=== PATIENT | female | born 1945 | race Hispanic/Latino ===

== ENCOUNTER → 2017-09-18 | Outpatient (CLI) | payer OTHER ==
[~2017-09-18] MED LIST: AEC81 PO; AMOX-426 PO; APIX2.5T PO; CALC-1009 PO; CYAN1TAB44 PO; FERR325T22 PO; FLUO40CA49 PO; GLIP10TA9 PO; INS7030 SQ; INSU100V12 SQ; LOMO PO; METO25 PO; OMEG1CAP31 PO; RISE35TA PO; ROSU20TA PO; TRAM50TA2 PO; VENL-63 PO; VERA-6 PO; ZOLP10TA6 PO
== END | disposition home or self-care (01) ==
LOC: RAH 10:42
PROVIDERS: ATTEND Internal Medicine
DX: M25.551 Pain in right hip (principal)
CPT/HCPCS: 73502

== ENCOUNTER 2019-08-21 14:08 | Inpatient (IN) | payer OTHER ==
[~2019-08-21] VITALS: Ht 157.5 cm; Wt 70.4 kg
[~2019-08-21 14:08] MED LIST changes: -ROSU20TA PO; +ROSU20TA23 PO; -VERA-6 PO; +VERA120T13 PO
[2019-08-21 14:54] LABS: CREATININE 5.5 mg/dL (0.5-1.5); POTASSIUM 4.8 mmol/L (3.5-5.1)
[2019-08-21 14:55] LABS: BASOPHILS % (AUTO) 0.3 % (0.0-5.0); EOSINOPHILS % (AUTO) 0.1 % (0.0-8.0); HEMATOCRIT 31.8 % (36-48); LYMPHOCYTES % (AUTO) 4.9 % (21.0-51.0); MEAN CORPUSCULAR HEMOGLOBIN 30.8 pg (27.0-33.0); MEAN CORPUSCULAR HGB CONC 32.4 g/dL (32.0-36.0); MEAN CORPUSCULAR VOLUME 95.2 fL (79-99); MONOCYTES % (AUTO) 2.3 % (3.0-13.0); NEUTROPHILS % (AUTO) 72.1 % (40.0-77.0); NUCLEATED RED BLOOD CELLS 0.1 % (0.0-0.19); PLATELET COUNT (AUTO) 84 K/uL (130-400); RED BLOOD CELL COUNT(AUTO) 3.34 MIL/uL (4.00-5.50); RED CELL DISTRIBUTION WIDTH 14.2 % (11.0-15.5); WHITE BLOOD COUNT (AUTO) 13.4 K/uL (4.8-10.8)
[2019-08-21 14:57] LABS: INR 1.06 (0.85-1.15); PARTIAL THROMBOPLASTIN TIME 40.7 SEC (26.3-35.5); PROTHROMBIN TIME 11.4 SEC (9.6-11.6)
[2019-08-21 14:59] LABS: ALBUMIN 2.3 g/dL (3.5-5.0); BILIRUBIN,TOTAL 0.8 mg/dL (0.2-1.0); TOTAL PROTEIN, SERUM 6.8 g/dL (6.0-8.3)
[2019-08-21 15:00] LABS: CREATINE KINASE, TOTAL 169 U/L (21-232)
[2019-08-21 15:04] LABS: LIPASE < 50 U/L (114-286)
[2019-08-21 16:42] LABS: APPEARANCE,URINE Cloudy (CLEAR); BILIRUBIN,URINE Negative (NEGATIVE); COLOR,URINE Yellow (YELLOW); GLUCOSE, URINE (UA) Negative (NEGATIVE); KETONES,URINE Negative (NEGATIVE); LEUKOCYTE ESTERASE ,URINE Moderate (NEGATIVE); NITRATE,URINE Negative (NEGATIVE); OCCULT BLOOD,URINE Moderate (NEGATIVE); PROTEIN,URINE POS 2+ mg/dL (NEGATIVE)
[2019-08-21 16:51] LABS: BACTERIA,URINE Many /HPF (None Seen); MUCUS,URINE Moderate LPF (None Seen); SQUAMOUS EPITHELIAL CELL,UR Moderate /HPF (0-2)
[2019-08-21] MEDS ORDERED: MIDODRINE HCL 5 MG TABLET ONE (18:46)
[2019-08-21] MEDS: SODIUM CHLORIDE 0.9% 1000ML 1,000 ML IV SCH (18:48)
[2019-08-21] MEDS ORDERED: CEFTRIAXONE SODIUM 1 GM IV SCH (19:00)
[2019-08-21] MEDS ORDERED: LACTULOSE 20 GM/30 ML UDCUP PO PRN (19:00)
[2019-08-21] MEDS ORDERED: ONDANSETRON HCL 4 MG/2 ML VIAL IV PRN (19:00)
[2019-08-21] MEDS ORDERED: ACETAMINOPHEN 325 MG TAB PO PRN ×2 (19:00)
[2019-08-21] MEDS ORDERED: FAMOTIDINE 20MG TAB 20 MG TAB ONE (21:20)
[2019-08-21] MEDS ORDERED: CEFTRIAXONE SODIUM 1 GM ONE (21:20)
[2019-08-22 04:35] LABS: BASOPHILS % (AUTO) 0.4 % (0.0-5.0); EOSINOPHILS % (AUTO) 0.6 % (0.0-8.0); HEMATOCRIT 27.4 % (36-48); LYMPHOCYTES % (AUTO) 6.5 % (21.0-51.0); MEAN CORPUSCULAR HEMOGLOBIN 30.1 pg (27.0-33.0); MEAN CORPUSCULAR HGB CONC 32.5 g/dL (32.0-36.0); MEAN CORPUSCULAR VOLUME 92.6 fL (79-99); MONOCYTES % (AUTO) 3.4 % (3.0-13.0); NEUTROPHILS % (AUTO) 82.6 % (40.0-77.0); PLATELET COUNT (AUTO) 69 K/uL (130-400); RED BLOOD CELL COUNT(AUTO) 2.96 MIL/uL (4.00-5.50); RED CELL DISTRIBUTION WIDTH 14.3 % (11.0-15.5); WHITE BLOOD COUNT (AUTO) 11.9 K/uL (4.8-10.8)
[2019-08-22] MEDS: SODIUM CHLORIDE 0.9% 1000ML 1,000 ML IV SCH ×3 (04:48→21:31)
[2019-08-22 04:52] LABS: CREATININE 5.2 mg/dL (0.5-1.5); POTASSIUM 4.6 mmol/L (3.5-5.1)
[2019-08-22] MEDS: ZOSYN 3.375GM+NS 50ML 50 ML IV SCH ×2 (08:15→20:24)
[2019-08-22] MEDS ORDERED: FAMOTIDINE 20MG TAB 20 MG TAB ONE (08:36)
[2019-08-22] MEDS: FAMOTIDINE 20MG TAB 20 MG TAB PO SCH (09:00)
[2019-08-22] MEDS: SODIUM BICARBONATE 650 MG TAB PO SCH ×2 (09:15→20:25)
[2019-08-22] MEDS ORDERED: ACETAMINOPHEN 325 MG TAB ONE (09:54)
[2019-08-22] MEDS ORDERED: CEFTRIAXONE SODIUM 1 GM ONE (10:45)
[2019-08-22 14:45] VITALS: BP 126/70
[2019-08-22] MEDS ORDERED: MELA5TAB14 PO (16:16)
[2019-08-22] MEDS ORDERED: ATOR10 PO (16:16)
[2019-08-22] MEDS ORDERED: MIRT15TA6 PO (16:16)
[2019-08-22] MEDS ORDERED: INSU100C14 SQ (16:16)
[2019-08-22] MEDS ORDERED: LISI-617 PO (16:16)
[2019-08-22] MEDS ORDERED: ESOM40CA54 PO (16:16)
[2019-08-22] MEDS ORDERED: TRAM50TA4 PO (16:16)
[2019-08-22] MEDS ORDERED: PRAM0.129 PO (16:16)
[2019-08-22] MEDS ORDERED: ICOS1CAP PO (16:16)
[2019-08-22] MEDS ORDERED: METO25TA6 PO (16:16)
--- NOTE | 2019-08-22 18:56 | NUR ---
DR AGUERO IF PATIENT BECOMES FEBRILE AND/OR SEPTIC, PLEASE PAGE HIM, PATIENT'S PRIMARY UROLOGIST IS DR AGUERO.
[2019-08-22 19:07] VITALS: BP 114/55
--- NOTE | 2019-08-22 19:45 | NUR ---
PM Assessment Received pt awake with NS at 100cc/hr, routine assessment done, plan of care discuss, noted to be shivering, claimed feeling cold, reported temp 98.5, pt room temperature noted at 69, increased to 75, pt covered with blanket for comfort. Pt denies pain at this time.
[2019-08-22] MEDS: CEFTRIAXONE SODIUM 1 GM IV SCH (20:25)
[2019-08-22 23:00] VITALS: BP 123/63
[2019-08-22] MEDS ORDERED: METOPROLOL TARTRATE 1 MG/ML 5ML VIAL IV PRN (23:15)
[2019-08-22] MEDS ORDERED: METOPROLOL TARTRATE 1 MG/ML 5ML VIAL IV ONE (23:19)
[2019-08-22 23:25] VITALS: BP 151/90
--- NOTE | 2019-08-22 23:25 | NUR ---
Re: Reported HR 150's SONOSCOPE OPERATOR Remy page & called back & made aware current status, no fever/pain temp 98.8, BP 123/63, R 26, per tele HR 150's, pt denies pain, also made aware pt per home medication is on Metoprolol 25mg po BID. Received order to give Metoprolol 2.5mg IV as PRN for HR>110, hold for SBP <100. Pt temp rechecked orally 99.5.
[2019-08-22 23:45] VITALS: BP 113/56
--- NOTE | 2019-08-22 23:45 | NUR ---
Re: Sinus tachycardia Pt noted to remain tachycardic, temp re-check axillary as pt noted warm to touch, 102.4, medicated with Tylenol & application of cold compress, will continue to monitor.
[2019-08-23] VITALS (26 sets, daily range): BP systolic 77–157; BP diastolic 41–119
[2019-08-23 04:11] LABS: BASOPHILS % (AUTO) 0.1 % (0.0-5.0); EOSINOPHILS % (AUTO) 58.2 % (0.0-8.0); HEMATOCRIT 26.8 % (36-48); LYMPHOCYTES % (AUTO) 2.8 % (21.0-51.0); MEAN CORPUSCULAR HEMOGLOBIN 30.6 pg (27.0-33.0); MEAN CORPUSCULAR HGB CONC 32.5 g/dL (32.0-36.0); MEAN CORPUSCULAR VOLUME 94.4 fL (79-99); MONOCYTES % (AUTO) 2.8 % (3.0-13.0); NEUTROPHILS % (AUTO) 34.8 % (40.0-77.0); NUCLEATED RED BLOOD CELLS 0.2 % (0.0-0.19); PLATELET COUNT (AUTO) 58 K/uL (130-400); RED BLOOD CELL COUNT(AUTO) 2.84 MIL/uL (4.00-5.50); RED CELL DISTRIBUTION WIDTH 14.3 % (11.0-15.5); WHITE BLOOD COUNT (AUTO) 11.6 K/uL (4.8-10.8)
[2019-08-23 04:24] LABS: % IRON SATURATION 3.6 % (22-44)
[2019-08-23 04:43] LABS: CREATININE 5.4 mg/dL (0.5-1.5); MAGNESIUM 1.1 mg/dL (1.80-2.40); PHOSPHORUS 4.6 mg/dL (2.5-4.9); POTASSIUM 4.4 mmol/L (3.5-5.1); THYROID STIMULATING HORMONE 0.86 uIU/mL (0.36-3.74)
[2019-08-23] MEDS: INSULIN HUMULIN R 100 UNIT/ML 3ML SQ SCH ×4 (05:50→20:39)
--- NOTE | 2019-08-23 07:45 | NUR ---
ASSESSMENT ENCOUNTERED PT ASLEEP BUT AROUSEABLE, A&OX3, CALM COOPERATIVE AND DOES NOT APPEAR TO BE IN ANY DISTRESS NOR ANY NEURO DEFICITS PRESENT. PT DENIES SOB, NAUSEA BUT DOES C/O BILATERAL BACK DISCOMFORT. PT TO REMAIN NPO UNTIL SEEN BY DR AGUERO. CALL LIGHT WITHIN REACH.
[2019-08-23] MEDS ORDERED: MAGNESIUM 2GM PREMIX 50ML 50 ML IV ONE ×2 (07:52→18:30)
--- NOTE | 2019-08-23 08:14 | NUR ---
MAGNESIUM LEVEL 1.1 DR CARRILLO UPDATED WITH CREATININE 5.5, NO ORDERS RECEIVED. WILL SEE PATIENT.
[2019-08-23] MEDS: ZOSYN 3.375GM+NS 50ML 50 ML IV SCH ×2 (08:15→20:29)
--- NOTE | 2019-08-23 08:30 | NUR ---
DR AGUERO UPDATED ORDERS RECEIVED
[2019-08-23] MEDS: CEFTRIAXONE SODIUM 1 GM IV SCH ×2 (08:53→20:29)
[2019-08-23] MEDS: SODIUM BICARBONATE 650 MG TAB PO SCH ×3 (09:00→20:29)
[2019-08-23] MEDS: FAMOTIDINE 20MG TAB 20 MG TAB PO SCH (09:00)
[2019-08-23] MEDS ORDERED: IOHEXOL-350 50ML VIAL IV ONE (09:39)
[2019-08-23] MEDS ORDERED: DEXAMETHASONE SOD PHOSPHATE 10MG/ML 1ML VIAL ONE (10:16)
[2019-08-23] MEDS ORDERED: PROPOFOL 10 MG/ML 20ML VIAL IV ONE (10:16)
[2019-08-23] MEDS ORDERED: ONDANSETRON HCL 4 MG/2 ML VIAL ONE (10:16)
[2019-08-23] MEDS ORDERED: LIDOCAINE PF 2% 5ML ABBOJECT ONE (10:16)
[2019-08-23] MEDS ORDERED: GLYCOPYRROLATE 1 MG/5 ML SYRINGE ONE (10:16)
[2019-08-23] MEDS ORDERED: SUCCINYLCHOLINE 200MG/10ML SYR ONE (10:16)
[2019-08-23] MEDS ORDERED: NEOSTIGMINE 5MG/5ML SYR IV ONE (10:17)
[2019-08-23] MEDS ORDERED: FENTANYL CITRATE PF 50 MCG/1 ML 2ML VIAL ONE (10:17)
[2019-08-23] MEDS ORDERED: ROCURONIUM 10MG/1ML SYR 10 MG/ML ML ONE (10:17)
[2019-08-23] MEDS ORDERED: MIDAZOLAM HCL 1 MG/ML 2ML VIAL ONE (10:17)
[2019-08-23] MEDS: SODIUM CHLORIDE 0.9% 1000ML 1,000 ML IV SCH (10:48)
--- NOTE | 2019-08-23 11:38 | NUR ---
INITIAL SW spoke with daughter, Mary Luna, [phone]. Another emergency contact is patient's granddaughter, Lynne Rosenthal, [phone]. Patient has no home health but [facility] nurse visits once X 3 months. PHC is with [facility] X 28.5 hours a week. Daughter is provider during the week and granddaughter is provider during the weekend. DME: rollator, wheel chair, BPM, glucometer (uses insulin), BSC, shower chair. Patient does need help with ADL's as per daughter and does not drive. PCP is Dr. Núñez. Pharmacy is [facility] located in [place]. DCP is home. Addendum: 08/23/19 at 1141 by COLLIN GOLDEN SS Amended: Links added.
[2019-08-23] MEDS ORDERED: ESMOLOL HCL 10 MG/ML 10 ML VIAL ONE (12:11)
[2019-08-23] MEDS ORDERED: ALBUMIN (HUMAN) 5% 250 ML IV ONE (12:19)
--- NOTE | 2019-08-23 13:45 | NUR ---
POST PROCEDURE RECEIVED PT FROM RECOVERY, IN SEMI SINGLETON'S POSITION, A&OX3, CALM COOPERATIVE AND DOES NOT APPEAR TO BE IN ANY DISTRESS NOR ANY NEURO DEFICITS PRESENT. DOTY CATH IN PLACE, BLOOD AND PURULENT TINGED URINE IN DOTY BAG, PT RESTING COMFORTABLY, CALL LIGHT WITHIN REACH.
--- NOTE | 2019-08-23 19:40 | NUR ---
PM Assessment Received pt s/p Cystoscopy with right ureteral stent placement, with Pinedo catheter in place, NS at 150cc/hr, pt reminded that she has a string that hsa been tape to her lower abdomen not to pull it until he goes back to see Dr. Gomez on her appointment once d/c, verbalizes understanding. Routine assessment done, pt noted had an accident, (+) diarrhea, watery, MANAGER OF TRAINING Parvin requested to go ahead give the pt a complete bed bath. Pt currently denies discomfort, stated feel much better at this time.
[2019-08-24] MEDS: SODIUM CHLORIDE 0.9% 1000ML 1,000 ML IV SCH ×3 (00:56→21:21)
[2019-08-24 03:59] VITALS: BP 162/85
[2019-08-24 04:35] LABS: HEMATOCRIT 28.1 % (36-48); MEAN CORPUSCULAR HGB CONC 31.3 g/dL (32.0-36.0); MEAN CORPUSCULAR VOLUME 95.9 fL (79-99); NUCLEATED RED BLOOD CELLS 0.2 % (0.0-0.19); RED BLOOD CELL COUNT(AUTO) 2.93 MIL/uL (4.00-5.50); RED CELL DISTRIBUTION WIDTH 14.4 % (11.0-15.5); WHITE BLOOD COUNT (AUTO) 8.5 K/uL (4.8-10.8)
[2019-08-24 04:58] LABS: BILIRUBIN,TOTAL 0.4 mg/dL (0.2-1.0); CREATININE 5.2 mg/dL (0.5-1.5); MAGNESIUM 1.9 mg/dL (1.80-2.40); PHOSPHORUS 5.9 mg/dL (2.5-4.9); POTASSIUM 5.3 mmol/L (3.5-5.1); TOTAL PROTEIN, SERUM 6.4 g/dL (6.0-8.3)
[2019-08-24 05:01] LABS: % IRON SATURATION 7.9 % (22-44)
[2019-08-24] MEDS: INSULIN HUMULIN R 100 UNIT/ML 3ML SQ SCH ×4 (06:51→20:52)
[2019-08-24] MEDS: ZOSYN 3.375GM+NS 50ML 50 ML IV SCH (07:55)
[2019-08-24] MEDS: CEFTRIAXONE SODIUM 1 GM IV SCH ×2 (07:55→20:32)
[2019-08-24] MEDS: FAMOTIDINE 20MG TAB 20 MG TAB PO SCH (07:55)
[2019-08-24] MEDS: SODIUM BICARBONATE 650 MG TAB PO SCH ×3 (07:56→20:32)
[2019-08-24 08:00] VITALS: BP 149/99
[2019-08-24] MEDS: METOPROLOL TARTRATE 25 MG TAB PO SCH ×2 (09:00→20:32)
[2019-08-24 11:18] VITALS: BP 140/78
[2019-08-24] MEDS: MEROPENEM 1 GM VIAL IVP SCH (13:13)
[2019-08-24] MEDS ORDERED: CALCIUM CHLORIDE 100 MG/ML 10 ML SYG IVP SCH (15:45)
[2019-08-24 15:50] VITALS: BP 162/85
[2019-08-24 19:00] VITALS: BP 180/89
[2019-08-24 23:00] VITALS: BP 153/87
[2019-08-25 03:00] VITALS: BP 189/92
[2019-08-25] MEDS: INSULIN HUMULIN R 100 UNIT/ML 3ML SQ SCH ×4 (05:15→21:15)
[2019-08-25] MEDS: SODIUM CHLORIDE 0.9% 1000ML 1,000 ML IV SCH ×2 (05:15→12:42)
[2019-08-25 05:37] LABS: BASOPHILS % (AUTO) 0.1 % (0.0-5.0); HEMATOCRIT 27.9 % (36-48); LYMPHOCYTES % (AUTO) 9.2 % (21.0-51.0); MEAN CORPUSCULAR HEMOGLOBIN 30.8 pg (27.0-33.0); MEAN CORPUSCULAR HGB CONC 33.3 g/dL (32.0-36.0); MEAN CORPUSCULAR VOLUME 92.4 fL (79-99); MONOCYTES % (AUTO) 5.6 % (3.0-13.0); NEUTROPHILS % (AUTO) 83.7 % (40.0-77.0); NUCLEATED RED BLOOD CELLS 0.3 % (0.0-0.19); PLATELET COUNT (AUTO) 61 K/uL (130-400); RED BLOOD CELL COUNT(AUTO) 3.02 MIL/uL (4.00-5.50); RED CELL DISTRIBUTION WIDTH 14.3 % (11.0-15.5); WHITE BLOOD COUNT (AUTO) 9.4 K/uL (4.8-10.8)
[2019-08-25 06:09] LABS: ALBUMIN 2.1 g/dL (3.5-5.0); BILIRUBIN,TOTAL 0.3 mg/dL (0.2-1.0); CREATININE 4.5 mg/dL (0.5-1.5); MAGNESIUM 1.7 mg/dL (1.80-2.40); PHOSPHORUS 4.5 mg/dL (2.5-4.9); POTASSIUM 5.2 mmol/L (3.5-5.1); TOTAL PROTEIN, SERUM 6.7 g/dL (6.0-8.3)
[2019-08-25] MEDS: SODIUM BICARBONATE 650 MG TAB PO SCH ×3 (07:51→19:37)
[2019-08-25] MEDS: METOPROLOL TARTRATE 25 MG TAB PO SCH ×2 (07:58→19:37)
[2019-08-25] MEDS: FAMOTIDINE 20MG TAB 20 MG TAB PO SCH (07:58)
[2019-08-25] MEDS: CEFTRIAXONE SODIUM 1 GM IV SCH (07:58)
[2019-08-25 08:15] VITALS: BP 198/105
[2019-08-25] MEDS ORDERED: AMLODIPINE BESYLATE 5 MG TAB PO SCH (09:15)
[2019-08-25] MEDS: MEROPENEM 1 GM VIAL IVP SCH (10:52)
[2019-08-25 11:48] VITALS: BP 181/92
[2019-08-25 16:25] VITALS: BP 169/77
--- NOTE | 2019-08-25 17:45 | NUR ---
pt uncooperative pt agitated at this time, removed telemetry and o2 per nc. states wanting to go home, states staff "laughing" her . positive redirection and re-oriented pt. pt agitated and insists on going home. call placed to daughter; states will be in to speak to pt
--- NOTE | 2019-08-25 18:45 | NUR ---
daughter present at this time pt's daughter here, made aware pt continues to be agitated and wants to go home. Dr Stokes here to see pt and speak to daughter. pt continues to refuse telemetry, iv fluids, and o2 per nc
[2019-08-25] MEDS ORDERED: DiphenhydrAMINE HCL 50 MG/ML VIAL IM PRN (19:00)
[2019-08-25] MEDS ORDERED: COMPOUND IV MISC 1 EACH IVSOLN MISC PRN (19:00)
[2019-08-25] MEDS ORDERED: HALOPERIDOL LACTATE 5 MG/ML VIAL IM PRN (19:00)
[2019-08-25] MEDS ORDERED: LOPERAMIDE HCL 2 MG CAP PO PRN (19:30)
[2019-08-25 20:00] VITALS: BP 128/86
[2019-08-25] MEDS: IRON SUCROSE COMPLEX 100 MG in SODIUM CHLORIDE 0.9% 50 ML IV SCH (21:14)
[2019-08-25] MEDS ORDERED: TRAMADOL HCL 50 MG TABLET PO PRN (21:15)
[2019-08-26] VITALS (7 sets, daily range): BP systolic 137–179; BP diastolic 60–94
[2019-08-26] MEDS: SODIUM CHLORIDE 0.9% 1000ML 1,000 ML IV SCH (03:28)
[2019-08-26 05:36] LABS: BASOPHILS % (AUTO) 0.1 % (0.0-5.0); EOSINOPHILS % (AUTO) 0.4 % (0.0-8.0); HEMATOCRIT 27.4 % (36-48); LYMPHOCYTES % (AUTO) 10.1 % (21.0-51.0); MEAN CORPUSCULAR HEMOGLOBIN 30.4 pg (27.0-33.0); MEAN CORPUSCULAR HGB CONC 33.2 g/dL (32.0-36.0); MEAN CORPUSCULAR VOLUME 91.6 fL (79-99); MONOCYTES % (AUTO) 10.2 % (3.0-13.0); NEUTROPHILS % (AUTO) 76.8 % (40.0-77.0); NUCLEATED RED BLOOD CELLS 0.4 % (0.0-0.19); PLATELET COUNT (AUTO) 84 K/uL (130-400); RED BLOOD CELL COUNT(AUTO) 2.99 MIL/uL (4.00-5.50); RED CELL DISTRIBUTION WIDTH 14.1 % (11.0-15.5); WHITE BLOOD COUNT (AUTO) 10.3 K/uL (4.8-10.8)
[2019-08-26 05:57] LABS: ALBUMIN 2.1 g/dL (3.5-5.0); BILIRUBIN,TOTAL 0.3 mg/dL (0.2-1.0); CREATININE 3.7 mg/dL (0.5-1.5); MAGNESIUM 1.7 mg/dL (1.80-2.40); PHOSPHORUS 4.4 mg/dL (2.5-4.9); POTASSIUM 4.4 mmol/L (3.5-5.1); TOTAL PROTEIN, SERUM 6.1 g/dL (6.0-8.3)
[2019-08-26] MEDS: INSULIN HUMULIN R 100 UNIT/ML 3ML SQ SCH ×4 (06:10→21:02)
[2019-08-26 06:47] LABS: ERYTHROCYTE SEDIMENTATION RATE 70 MM/HR (0-30)
[2019-08-26] MEDS: **HM**(Icosapent Ethyl (Vascepa) 1 GM PO SCH ×2 (08:00→17:00)
[2019-08-26] MEDS: SODIUM BICARBONATE 650 MG TAB PO SCH ×3 (08:36→20:46)
[2019-08-26] MEDS: AMLODIPINE BESYLATE 5 MG TAB PO SCH (09:20)
[2019-08-26] MEDS: PANTOPRAZOLE SODIUM 40 MG TABLET.DR PO SCH (09:20)
[2019-08-26] MEDS: METOPROLOL TARTRATE 25 MG TAB PO SCH ×2 (09:20→20:46)
[2019-08-26] MEDS: LISINOPRIL 5 MG TABLET PO SCH (09:21)
[2019-08-26] MEDS: PRAMIPEXOLE DI-HCL 0.25 MG TABLET PO SCH ×2 (09:21→20:46)
[2019-08-26] MEDS: FAMOTIDINE 20MG TAB 20 MG TAB PO SCH (09:21)
[2019-08-26] MEDS: MEROPENEM 1 GM VIAL IVP SCH (13:03)
--- NOTE | 2019-08-26 14:00 | NUR ---
CM NOTE/[facility] NEW REFERALL FOR IV ANTIBIOTICS AND HOME HEALTH. MEET WITH PATIENT IN ROOM, [facility] TO CALL HER DAUGHTER REGARDING DC PLANNING. JULIEN SORIANO CALLED, [facility]REG[facility] FILLED FOR [facility] AND [facility] FOR IV ANTIBIOTICS. [facility] FAXED, PENDING RX FOR IV, WILL FOLLOW UP AND FAX ORDER WHEN AVAILABLE.
[2019-08-26 14:13] LABS: INR 1.03 (0.85-1.15); PROTHROMBIN TIME 11.1 SEC (9.6-11.6)
[2019-08-26] MEDS: MIRTAZAPINE 15 MG TABLET PO SCH (20:46)
[2019-08-26] MEDS: ATORVASTATIN CALCIUM 20 MG TABLET PO SCH (20:46)
[2019-08-26] MEDS: IRON SUCROSE COMPLEX 100 MG in SODIUM CHLORIDE 0.9% 50 ML IV SCH (20:46)
[2019-08-26] MEDS: MELATONIN 5 MG PO SCH (21:00)
--- NOTE | 2019-08-27 | NUR ---
PATENT A/OX3. COMPLIANT. DENIES PAIN. NO S/S OF DISTRESS AT THIS TIME. DOTY CATHETER IN PLACE DRAINING RED TINGED URINE WITH SEDIMENT. WILL CONTINUE TO MONITOR.
[2019-08-27 03:41] VITALS: BP 153/70
[2019-08-27 04:58] LABS: ALBUMIN 1.9 g/dL (3.5-5.0); BILIRUBIN,TOTAL 0.7 mg/dL (0.2-1.0); CREATININE 2.8 mg/dL (0.5-1.5); POTASSIUM 4.6 mmol/L (3.5-5.1); TOTAL PROTEIN, SERUM 5.7 g/dL (6.0-8.3)
[2019-08-27] MEDS: INSULIN HUMULIN R 100 UNIT/ML 3ML SQ SCH ×4 (06:30→20:40)
[2019-08-27] MEDS: PANTOPRAZOLE SODIUM 40 MG TABLET.DR PO SCH (06:37)
[2019-08-27 07:08] LABS: BASOPHILS % (AUTO) 0.2 % (0.0-5.0); EOSINOPHILS % (AUTO) 1.1 % (0.0-8.0); HEMATOCRIT 25.8 % (36-48); LYMPHOCYTES % (AUTO) 14.6 % (21.0-51.0); MEAN CORPUSCULAR HEMOGLOBIN 30.2 pg (27.0-33.0); MEAN CORPUSCULAR HGB CONC 32.9 g/dL (32.0-36.0); MEAN CORPUSCULAR VOLUME 91.8 fL (79-99); MONOCYTES % (AUTO) 8.8 % (3.0-13.0); NEUTROPHILS % (AUTO) 71.3 % (40.0-77.0); NUCLEATED RED BLOOD CELLS 0.5 % (0.0-0.19); PLATELET COUNT (AUTO) 96 K/uL (130-400); RED BLOOD CELL COUNT(AUTO) 2.81 MIL/uL (4.00-5.50); RED CELL DISTRIBUTION WIDTH 13.9 % (11.0-15.5); WHITE BLOOD COUNT (AUTO) 8.8 K/uL (4.8-10.8)
[2019-08-27] MEDS: **HM**(Icosapent Ethyl (Vascepa) 1 GM PO SCH ×2 (08:00→16:55)
[2019-08-27 08:34] VITALS: BP 123/69
[2019-08-27] MEDS: SODIUM BICARBONATE 650 MG TAB PO SCH ×3 (09:15→20:29)
[2019-08-27] MEDS: FAMOTIDINE 20MG TAB 20 MG TAB PO SCH (09:22)
[2019-08-27] MEDS: PRAMIPEXOLE DI-HCL 0.25 MG TABLET PO SCH ×2 (09:24→20:30)
[2019-08-27] MEDS: AMLODIPINE BESYLATE 5 MG TAB PO SCH (09:24)
[2019-08-27] MEDS: LISINOPRIL 5 MG TABLET PO SCH (09:25)
[2019-08-27] MEDS: METOPROLOL TARTRATE 25 MG TAB PO SCH ×2 (09:25→20:30)
[2019-08-27] MEDS: MEROPENEM 1 GM VIAL IVP SCH (09:26)
[2019-08-27 12:29] VITALS: BP 151/75
--- NOTE | 2019-08-27 14:01 | NUR ---
CM NOTE/[facility]/ HH RX ORDER FAXED TO [facility], CONFIRMED RECEIPT FAX. PER LEIDY AT [facility], ORDER UNDER PROCESS. CLINICAL PACKET FAXED, PENDING CONFIRMATION. CALLED, SPOKE WITH COLLIN . INFORMED OF PENDING REFERRAL AND PCP TO [place]. WILL FOLLOW UP FOR UPDATES.
[2019-08-27 16:27] VITALS: BP 145/69
[2019-08-27 20:07] VITALS: BP 136/67
[2019-08-27] MEDS: MIRTAZAPINE 15 MG TABLET PO SCH (20:29)
[2019-08-27] MEDS: ATORVASTATIN CALCIUM 20 MG TABLET PO SCH (20:29)
[2019-08-27] MEDS: IRON SUCROSE COMPLEX 100 MG in SODIUM CHLORIDE 0.9% 50 ML IV SCH (20:30)
[2019-08-27] MEDS: MELATONIN 5 MG PO SCH (20:40)
[2019-08-27 23:57] VITALS: BP 131/59
[2019-08-28 03:51] VITALS: BP 146/69
[2019-08-28] MEDS: PANTOPRAZOLE SODIUM 40 MG TABLET.DR PO SCH (05:48)
[2019-08-28] MEDS: INSULIN HUMULIN R 100 UNIT/ML 3ML SQ SCH ×3 (06:17→17:39)
[2019-08-28] MEDS: **HM**(Icosapent Ethyl (Vascepa) 1 GM PO SCH ×2 (08:00→17:00)
[2019-08-28] MEDS: METOPROLOL TARTRATE 25 MG TAB PO SCH (09:01)
[2019-08-28] MEDS: AMLODIPINE BESYLATE 5 MG TAB PO SCH (09:01)
[2019-08-28] MEDS: FAMOTIDINE 20MG TAB 20 MG TAB PO SCH (09:01)
[2019-08-28] MEDS: SODIUM BICARBONATE 650 MG TAB PO SCH ×2 (09:01→09:02)
[2019-08-28] MEDS: LISINOPRIL 5 MG TABLET PO SCH (09:02)
[2019-08-28] MEDS: MEROPENEM 1 GM VIAL IVP SCH (09:02)
[2019-08-28 09:05] VITALS: BP 148/77
[2019-08-28] MEDS ORDERED: LOPERAMIDE HCL 2 MG CAP PO SCH (09:30)
[2019-08-28] MEDS ORDERED: LOPERAMIDE HCL 2 MG CAP PO PRN (10:30)
[2019-08-28 11:00] VITALS: BP 160/74
[2019-08-28] MEDS ORDERED: EPOETIN ALFA 10,000 UNIT/ML VIAL SQ SCH (11:30)
--- NOTE | 2019-08-28 11:41 | NUR ---
CM NOTE/[facility] DENIED/HEALTH CARE UNLIMITED REFERRAL PER COLLIN AT [facility], DENIYING PATIENT D/T NOT ENOUGH STAFF FOR IV ANTIBIOTIC ADMINISTRATION. DAUGHTER, JULIEN JUSTICE CALLED, OK FOR ANY IN NETWORK. REFERRAL SENT TO [facility] [place] FOR NURSING CARE AND IV ANTIBIOTICS. WILL FOLLOW UP FOR UPDATES.
[2019-08-28] MEDS: PRAMIPEXOLE DI-HCL 0.25 MG TABLET PO SCH (14:11)
[2019-08-28 16:00] VITALS: BP 156/73
[2019-08-28] MEDS ORDERED: FERR325T22 PO (19:24)
[2019-08-28 20:38] VITALS: BP 156/77
== END 2019-08-28 21:50 | disposition home health service (06) | DRG 853 ==
LOC: EDH 14:08 → EDHIP 18:48 → 4DH 08-22 15:02
PROVIDERS: ADMIT Internal Medicine; ATTEND Internal Medicine
PROC: 0T768DZ Dilation of Right Ureter with Intraluminal Device, Via Natural or Artificial Opening Endoscopic (ICD-10-PCS; principal; 2019-08-23 11:15)
PROC: BT1D1ZZ Fluoroscopy of Right Kidney, Ureter and Bladder using Low Osmolar Contrast (ICD-10-PCS; 2019-08-23 11:15)
PROC: 02H633Z Insertion of Infusion Device into Right Atrium, Percutaneous Approach (ICD-10-PCS; 2019-08-26)
DX: A41.50 Gram-negative sepsis, unspecified (principal); N17.0 Acute kidney failure with tubular necrosis; E44.0 Moderate protein-calorie malnutrition; N13.6 Pyonephrosis; E87.2 Acidosis; Z16.12 Extended spectrum beta lactamase (ESBL) resistance; Z16.24 Resistance to multiple antibiotics; R65.20 Severe sepsis without septic shock; D69.6 Thrombocytopenia, unspecified; E11.22 Type 2 diabetes mellitus with diabetic chronic kidney disease; C53.9 Malignant neoplasm of cervix uteri, unspecified; D50.9 Iron deficiency anemia, unspecified; D63.8 Anemia in other chronic diseases classified elsewhere; D69.59 Other secondary thrombocytopenia; E66.9 Obesity, unspecified; Z68.28 Body mass index [BMI] 28.0-28.9, adult; E78.00 Pure hypercholesterolemia, unspecified; E78.5 Hyperlipidemia, unspecified; E87.5 Hyperkalemia; N18.9 Chronic kidney disease, unspecified; M81.0 Age-related osteoporosis without current pathological fracture; F32.9 Major depressive disorder, single episode, unspecified; K21.9 Gastro-esophageal reflux disease without esophagitis; M19.90 Unspecified osteoarthritis, unspecified site; N13.9 Obstructive and reflux uropathy, unspecified; E83.51 Hypocalcemia; I25.10 Atherosclerotic heart disease of native coronary artery without angina pectoris; I12.9 Hypertensive chronic kidney disease with stage 1 through stage 4 chronic kidney disease, or unspecified chronic kidney disease; Z81.8 Family history of other mental and behavioral disorders; Z82.0 Family history of epilepsy and other diseases of the nervous system; Z82.3 Family history of stroke; Z82.49 Family history of ischemic heart disease and other diseases of the circulatory system; Z82.5 Family history of asthma and other chronic lower respiratory diseases; Z82.62 Family history of osteoporosis; Z85.41 Personal history of malignant neoplasm of cervix uteri; Z90.710 Acquired absence of both cervix and uterus; Z92.3 Personal history of irradiation; Z83.3 Family history of diabetes mellitus
CPT/HCPCS: 36415; 71045; 74176; 74420; 80048; 80053; 81001; 82306; 82550; 82570; 82728; 82948; 83540; 83550; 83605; 83690; 83735; 84100; 84145; 84156; 84443; 84484; 85025; 85027; 85045; 85610; 85651; 85730; 87040; 87077; 87088; 87186; 93005; A4344; A4354; C1751; C1758; C1769; C1894; C2617; G0378; J0330; J0696; J0885; J1100; J1200; J1630; J1756; J1815; J2001; J2185; J2250; J2405; J2543; J2704; J2710; J3010; J3475; J3490; J7030; P9045; Q9967

== ENCOUNTER 2021-08-08 23:59 | Emergency (ER) | payer OTHER ==
[~2021-08-08] VITALS: Ht 154.9 cm; Wt 68.9 kg
[~2021-08-08 23:59] MED LIST changes: -AEC81 PO; -AMOX-426 PO; -APIX2.5T PO; +ATOR10 PO; -CALC-1009 PO; -CYAN1TAB44 PO; +ESOM40CA54 PO; -FLUO40CA49 PO; -GLIP10TA9 PO; +ICOS1CAP PO; -INS7030 SQ; +INSU100C14 SQ; -INSU100V12 SQ; +LISI5TAB21 PO; -LOMO PO; +MELA5TAB14 PO; -METO25 PO; +METO25TA6 PO; +MIRT-22 PO; -OMEG1CAP31 PO; +PRAM0.129 PO; -RISE35TA PO; -ROSU20TA23 PO; -TRAM50TA2 PO; +TRAM50TA4 PO; -VENL-63 PO; -VERA120T13 PO; -ZOLP10TA6 PO
[2021-08-09] MEDS ORDERED: ONDANSETRON ODT 4MG TAB SL ONE (01:00)
[2021-08-09] MEDS ORDERED: MORPHINE 4 MG SYG IM PRN (01:00)
[2021-08-09 04:00] LABS: APPEARANCE,URINE Cloudy (CLEAR); BILIRUBIN,URINE Negative (NEGATIVE); COLOR,URINE Yellow (YELLOW); GLUCOSE, URINE (UA) 500 mg/dL (NEGATIVE); KETONES,URINE Negative (NEGATIVE); LEUKOCYTE ESTERASE ,URINE Small (NEGATIVE); NITRATE,URINE Negative (NEGATIVE); OCCULT BLOOD,URINE Small (NEGATIVE); PH,URINE 5.5 (5.0-8.0); PROTEIN,URINE 300 mg/dL (NEGATIVE); UROBILINOGEN,URINE 0.2 mg/dL (0.2-1.0)
[2021-08-09 04:05] VITALS: BP 179/74
[2021-08-09 04:35] LABS: BACTERIA,URINE Many /HPF (None Seen); WBC,URINE 51-100 /HPF (0-1)
[2021-08-09] MEDS ORDERED: NAPR-1180 PO (04:40)
[2021-08-09] MEDS ORDERED: OXYC-26 PO (04:40)
[2021-08-09] MEDS ORDERED: SULF1TAB42 PO (04:40)
[2021-08-09] MEDS ORDERED: AMLODIPINE 5 MG TAB ONE (04:42)
[2021-08-09] MEDS ORDERED: AMLODIPINE 5 MG TAB PO ONE (05:00)
== END 2021-08-09 04:56 | disposition home or self-care (01) ==
LOC: EDH 23:59
DX: M54.41 Lumbago with sciatica, right side (principal); I10 Essential (primary) hypertension; N39.0 Urinary tract infection, site not specified; E11.9 Type 2 diabetes mellitus without complications; F03.90 Unspecified dementia, unspecified severity, without behavioral disturbance, psychotic disturbance, mood disturbance, and anxiety; Z88.5 Allergy status to narcotic agent; Z79.899 Other long term (current) drug therapy; Z79.4 Long term (current) use of insulin; Z98.890 Other specified postprocedural states
CPT/HCPCS: 72131; 81001; 87077; 87088; 87186; 96372; 99284; J2270